=== PATIENT | female | born 1965 | race African-American/Black ===

== ENCOUNTER → 2019-03-11 | Day surgery (SDC) | payer OTHER | LOC: JRADIR 09:01 ==

== ENCOUNTER → 2019-07-03 | Day surgery (SDC) | payer OTHER ==
--- NOTE | 2019-07-07 09:48 | PATH ---
Cytology Non-Gynecological Report Patient Name: DOUGLAS CORLEY Med. Rec. #: [id number] /Age/Gender: 1965 (Age: 54) / F Account: [id number] Location: RADIOLOGY INTER Taken: 07/03/2019 Received: 07/03/2019 Reported: 07/07/2019 Physicians: Junior Ramos M.D. Specimen(s) Received THYROID LEFT LOBE Clinical History Left lobe 3.42 x 2.36 x 2.92 cm Final Diagnosis THYROID, LEFT, FINE NEEDLE ASPIRATION: SATISFACTORY FOR EVALUATION. BETHESDA IV: SUSPICIOUS FOR FOLLICULAR NEOPLASM. FOLLICULAR CELLS WITH MILD NUCLEAR ENLARGEMENT, OCASSIONAL NUCLEOLI, SUBTLE GROOVES, AND NUCLEAR CROWDING DISPERSED CELLULAR FRAGMENTS, TRABECULAR AGGREGATES AND MICROFOLLICLES. RARE LYMPHOCYTES AND RARE MACROPHAGES NOTED. SEE COMMENT. Comment: Prior material is noted. Molecular studies pending (Thyroseq). Findings will be reported separately. Case discussed with Dr. Miller. Electronically Signed Constance Mckeon M.D. Addendum Reported: 07/23/2019 Addendum Diagnosis NEXT-GENERATION SEQUENCING (THYROSEQ V3) performed and interpreted at [place], [place] ([id number]) shows the following: SITE: LEFT THYROID TEST RESULT: POSITIVE RISK OF CANCER RECURRENCE: HIGH (>95%). POTENTIAL MANAGEMENT: Surgical excision. See interpretation below for details. INTERPRETATION: Multiple mutations, including those of the SERA, EIF1AX, TP53, and TERT genes, were identified in this sample. This molecular profile is associated with a high (>95%) probability of cancer, typically high-risk follicular variant papillary carcinoma or follicular carcinoma. Tumors with multiple mutations including TP53 and TERT are of a high risk for recurrence and distant spread. These tumors may be prone to dedifferentiation. Because of the molecular signature of high-risk cancer, total thyroidectomy may be considered in appropriately selected patients. Patient management decisions must be based on the independent medical judgment of the treating physician. Molecular test results should be taken into consideration in conjunction with all relevant imaging and clinical findings, patient and family history, as well as patient preference. DETAILED RESULTS Specimen cellularity/adequacy for interpretation: ADEQUATE. Marker Type Marker Result AF Variant Allele Frequency Gene mutations TP53 p.K943_sqxiey c.375+1del 60% NRAS p.Q61K c.181C>A 39% PIK3CA p.S7031P c.3140A>G 10% EIF1AX p.A774_sukcnx c.338-4_354del 53% TERT p.C228T c.1-124C>T 4% Gene fusions Negative Copy number alterations Negative Gene expression profile Negative Parathyroid Negative Medullary/C-cells Negative See Thyroseq report for details ([id number]). Constance Mckeon M.D. Gross Description Received are eight direct smears, four of which are air-dried and Diff-Quik stained, and four of which are alcohol fixed and Pap stained. Also received is 20 ml of bloody formalin from which one cellblock is prepared. Received is a 1.5 ml molecular ThyroSeq tube.
== END | disposition home or self-care (01) ==
LOC: JRADIR 09:13
PROVIDERS: ATTEND Internal Medicine Endocrinology, Diabetes & Metabolism
PROC: 0G9G3ZX Drainage of Left Thyroid Gland Lobe, Percutaneous Approach, Diagnostic (ICD-10-PCS; principal; 2019-07-03)
DX: D44.0 Neoplasm of uncertain behavior of thyroid gland (principal)
CPT/HCPCS: 76942; 88173; 88305-TC

== ENCOUNTER 2019-08-22 08:21 | Day surgery (SDC) | payer OTHER ==
[2019-08-21 18:54] VITALS: BMI 29.2
--- NOTE | 2019-08-22 08:13 | HP ---
[facility] - Chief Complaint History of Present Illness: Patient with thyroid nodule, suspicious for malignancy. Plan : total thyroidectomy, possible neck dissection. Procedure : Explained , with risks , benefits and complications explained. - Past Medical History Allergies/Adverse Reactions: Allergies Allergy/AdvReac Type Severity Reaction Status Date / Time No Known Drug Allergies Allergy Verified 08/21/19 19:01 - Current Medications Current Medications: Home Medications Medication Instructions Recorded Aspirin Coated [Ecotrin -] 81 mg PO DAILY 08/21/19 Hydrochlorothiazide [Hctz -] 25 mg PO DAILY 08/21/19 Levothyroxine [Synthroid -] 25 mcg PO DAILY 08/21/19 Losartan Potassium 25 mg PO DAILY 08/21/19
[2019-08-22] MEDS ORDERED: LIDOCAINE HCL/PF 2% SDV 5ML VIAL ONE (09:31)
[2019-08-22] MEDS ORDERED: fentaNYL CITRATE 250 MCG/5 ML VIAL ONE (09:31)
[2019-08-22] MEDS ORDERED: PROPOFOL 20 ML ONE ×8 (09:32→13:02)
[2019-08-22] MEDS ORDERED: ROCURONIUM BROMIDE 50 MG/5 ML SYRINGE ONE (09:32)
[2019-08-22] MEDS ORDERED: MIDAZOLAM HCL 2 MG/2 ML SINGLE DOSE VIAL ONE (09:32)
[2019-08-22] MEDS ORDERED: DESFLURANE GAS 240 ML BOTTLE IH ONE (09:35)
[2019-08-22] MEDS ORDERED: HYDROmorphone HCl 2 MG/ML VIAL ONE (11:40)
[2019-08-22] MEDS ORDERED: LABETALOL HCL 5 MG/1 ML (100MG/20 ML VIAL) ONE (11:49)
[2019-08-22] MEDS ORDERED: ONDANSETRON 4 MG/2 ML VIAL IVPUSH PRN (12:08)
[2019-08-22] MEDS ORDERED: oxyCODONE HCL 5 MG TABLET PO PRN ×2 (12:08→12:09)
[2019-08-22] MEDS ORDERED: LACTATED RINGERS SOLUTION 1,000 ML IV SCH (12:15)
--- NOTE | 2019-08-22 13:47 | OP ---
Operative Note - Note: Operative Date: 08/22/19 Pre-Operative Diagnosis: Neoplasm of thyroid,. Thyroid nodule suspicious for carcinoma. Operation: Total thyroidectomy , use of Nervana nerve monitor. Findings: Large nodule in lower pole of left lobe of thyroid gland, multiple small firm nodules around the upper pole of the left lobe of thyroid and inferior pole of the right lobe of thyroid gland. Post-Operative Diagnosis: Same as Pre-op Surgeon: Christiano Mayers Clinical Data Manager: Van Navarro Anesthesia: General Specimens Removed: 1)Total thyroidectomy,. 2) Nodule at the inferior pole of the right lobe of thyroid gland. Estimated Blood Loss (mls): 15 Instrument used (Debridements only): Nervana nerve monitor. Drains & Tubes with Location: HARMAN drain placed in the thyroid bed. Operative Report Dictated: Yes
[2019-08-22] MEDS ORDERED: LOSARTAN 50MG/HCTZ 12.5MG 1 TAB (FP) PO ONE (13:52)
[2019-08-22] MEDS ORDERED: ACETAMINOPHEN 325 MG TABLET (FP) PO PRN (14:24)
--- NOTE | 2019-08-22 14:32 | SURG ---
Surgery Account General Manager Note Account General Manager: Van Navarro PA-C (Suzy) Date of Service: 08/22/19 Diagnosis: Neoplasm of thyroid,. Thyroid nodule suspicious for carcinoma. Procedure: Operation: Total thyroidectomy , use of Nervana nerve monitor. I was present for the entirety of the operative procedure. For further detail, please refer to operative report. Visit type - Case Type Case Type: Scheduled - Emergency Emergency Visit: No - New patient This patient is new to me today: Yes Date on this admission: 08/22/19 - Critical Care Critical Care patient: No
--- NOTE | 2019-08-22 15:08 | OP ---
DATE OF OPERATION: 08/22/2019 PREOPERATIVE DIAGNOSES: 1. Nodule in the left lobe of the thyroid, suspicious for carcinoma. 2. Neoplasm of the thyroid gland. 3. Abnormal cytogenetics of the thyroid and pathology. POSTOPERATIVE DIAGNOSIS: 1. Nodule in the left lobe of the thyroid, suspicious for carcinoma. 2. Neoplasm of the thyroid gland. 3. Abnormal cytogenetics of the thyroid and pathology. OPERATIVE PROCEDURE: Total thyroidectomy with frozen section, use of Nervana nerve monitor. SURGEON: Christiano Mayers MD FILM INSPECTOR: INGA Torres ANESTHESIA: General anesthesia with a Nervana endotracheal tube. OPERATIVE DESCRIPTION: This 54-year-old woman had a large nodule in the left lobe of the thyroid gland. An FNA suggested to have suspicious nuclear and cytogenetics suggesting 96% probability of a neoplasm. Patient is brought in for total thyroidectomy, possible node dissection, and use of the Nervana nerve monitoring device. Consent was obtained. Risks, benefits, and complications were extensively discussed with the patient. Patient was administered anesthesia using the Nervana nerve monitor endotracheal tube. The neck was painted and draped. Time-out was called. Horizontal skin incision was made 1 fingerbreadth over the clavicle from 1 sternocleidomastoid muscle to another. The incision was deepened inside the skin, subcutaneous tissue, and the platysma muscle. Once this was done, the superior, inferior skin flaps were then raised between the platysma and the deep cervical fascia, superior lip of the hyoid bone, inferior . The sternocleidomastoid muscle was freed from the flap on either side. Once this was done, the strap muscles were divided in the midline from the hyoid bone down to the suprasternal notch. Hemostasis was achieved using hemoclips, electrocautery, or the LigaSure and sometimes with the 3-0 silk suture ligatures. Once the strap muscles were divided, the left lobe of the thyroid gland was then exposed by retracting the strap muscles, and this was delivered into the wound by mobilizing it circumferentially all around. There was a large 2-cm diameter nodule on the left lobe of the thyroid gland. The superior lobe of the thyroid gland was then mobilized dividing the superior thyroid vessels as close to the gland as possible. There were multiple, small, firm nodules along the lateral edge of the upper pole of the left lobe of the thyroid gland. These were included in the dissection and sent along with the specimen. The middle thyroid vein was also divided between clips, and the inferior thyroid muscles were also divided as close to the gland as possible. The gland was then mobilized medially. The left recurrent laryngeal nerve was identified and preserved throughout the course and so were the parathyroid glands. The gland was then mobilized across the pretracheal fascial plane. There was a pyramidal lobe, which was also removed intact along with the specimen, and the whole left lobe of the thyroid gland, which included the large nodule as well as multiple small nodules were mobilized toward the right lobe of the thyroid gland. Hemostasis was satisfactory during the procedure. The right lobe of the thyroid gland was then mobilized dividing the superior thyroid vessels as close to the gland as possible between clips as well as the LigaSure. The middle thyroid vein on the right was also divided between clips. The gland was then mobilized medially. The inferior thyroid vessels were also divided as close to the gland as possible. The right recurrent laryngeal nerve as well as the parathyroid glands were identified and preserved throughout the procedure. There was a large, firm nodule measuring a centimeter at the inferior pole of the right lobe of the thyroid gland, which was grossly excised separately and sent to Pathology separately. A total thyroidectomy was then performed. The specimen was sent to Pathology. The frozen section suggested this to be a follicular neoplasm, which included the large nodule as well as the smaller nodules in the upper pole of the left lobe of the thyroid gland as well as in the inferior pole of the right lobe of the thyroid gland. The final diagnosis was deferred. Hemostasis was satisfactory at the completion of the procedure. Both recurrent laryngeal nerves were intact and so were the parathyroid glands. The wound was irrigated. The No. 8 J-P drain was left into the wound and brought out through a stab wound on the right side of the neck. This was anchored to the skin with 3-0 Prolene sutures. The strap muscles were approximated with interrupted 3-0 Vicryl sutures, the platysma with buried interrupted 3-0 Vicryl sutures. Subcutaneous tissues were approximated with buried, interrupted 3-0 Vicryl sutures and count approximated with continuous 4-0 Monocryl sutures in a running subcuticular fashion. Estimated blood loss was less than 30 mL. Sponge count and instrument count were correct. The Nervana was applied across the skin edges. Both vocal cords were mobile at the completion of the procedure. Patient was talking normally and was extubated. Patient was transferred to the recovery room in satisfactory and stable condition. Junior [id number]
[2019-08-23 06:25] VITALS: BP 132/64; PULSE 81; TEMP 98.1
[2019-08-23] MEDS ORDERED: LEVOTHYROXINE NA 50 MCG TABLET (FP) PO SCH (07:00)
--- NOTE | 2019-08-23 09:55 | PN ---
Progress Note (short form) - Note Progress Note: 54 yo F s/p GA for thyroidectomy. pain controlled. no comps. good result of anesthetic care
--- NOTE | 2019-08-23 13:33 | PROC ---
Procedure Note Procedure: Draiin in place. Drainage 70 ml. Will discharge home. Follow up in my office on Sunday.
--- NOTE | 2019-08-29 16:49 | PATH ---
Surgical Pathology Report Patient Name: DOUGLAS CORLEY [facility]. Rec. #: [id number] /Age/Gender: 1965 (Age: 54) / F Account: [id number] Location: AMBULATORY SURG Taken: 08/22/2019 Received: 08/22/2019 Reported: 08/29/2019 Physicians: Umm Mayers M.D. Specimen(s) Received A: THYROID B: RIGHT LOWER THYROID NODULE Clinical History Malignant neoplasm of thyroid gland Intraoperative Consult Diagnosis A. Thyroid, frozen section: Follicular lesion, defer to permanents for definitive classification. B. Right lower thyroid nodule, frozen section: Follicular lesion, defer to permanents for definitive classification. Dionisio Da Silva M.D., 08/22/2019 Final Diagnosis A. THYROID, TOTAL THYROIDECTOMY (FS): POORLY DIFFERENTIATED THYROID CARCINOMA. CARCINOMA MEASURES 3 CM IN GREATEST DIMENSION (GROSS MEASUREMENT), PRESENT AT LEFT LOBE. CAPSULAR INVASION IDENTIFIED. LYMPHOVASCULAR IDENTIFIED. NO EXTRA-THYROIDAL EXTENSION IDENTIFIED. SURGICAL MARGINS ARE NEGATIVE. REMAINDER OF THYROID PARENCHYMA SHOWS MULTINODULAR HYPERPLASIA. TWO PERITHYROIDAL LYMPH NODES NEGATIVE FOR CARCINOMA (0/2). SEE INVASIVE SUMMARY BELOW. PATHOLOGIC STAGE (pTNM): pT2 pN0. SEE COMMENT. B. THYROID NODULE, LOWER, RIGHT, EXCISION (FS): BENIGN THYROID PARENCHYMA WITH NODULAR HYPERPLASIA. Comment: Part A, the tumor is encapsulated and show microfollicular, solid, and insular growth pattern. Patchy areas of convoluted nuclei and readily identifiable mitosis (mitosis: 7-9/10HPF) present. No necrosis identified. Capsular and lymphovascular invasion present. Immunohistochemical stains performed and interpreted at [facility] show the tumor is positive for TTF-1; while negative for synaptophysin and chromogranin. Additional immunohistochemical stains performed at [place], [place] ([id number]) and interpreted at [facility] show the tumor is positive for thyroglobulin; while negative for PTH and calcitonin. Overall, findings support a poorly differentiated thyroid carcinoma. Case seen in intradepartmental review with consensus on diagnosis. Positive and negative controls (internal if applicable) show appropriate results. Comments Thyroid: Surgical Pathology Cancer Case Summary (Based on AJCC 8 th edition) Procedure _X_ Total thyroidectomy Tumor Focality _X_ Unifocal Tumor Site _X_ Left lobe Tumor Size Greatest dimension (centimeters): 3 cm (gross measurement) Histologic Type _X_ Poorly differentiated thyroid carcinoma Margins _X_ Uninvolved by carcinoma Angioinvasion (Vascular Invasion) _X_ Present Lymphatic Invasion _X__ Not identified Extrathyroidal Extension _X_ Not identified Regional Lymph Nodes Number of Lymph Nodes Involved: 0 Number of Lymph Nodes Examined: 2 Specify Alessia Levels _X__ Level - pretracheal, paratracheal and prelaryngeal/Delphian, perithyroidal (central compartment Pathologic Stage Classification (pTNM, AJCC 8th Edition) Primary Tumor (pT) _X__ pT2: Tumor >2 cm, but =4 cm in greatest dimension, limited to thyroid Regional Lymph Nodes (pN) _X__ pN0: No evidence of locoregional lymph node metastasis Additional Pathologic Findings _X__ Adenomatoid nodule(s) or nodular follicular disease (nodular hyperplasia) Electronically Signed Constance Mckeon M.D. Gross Description A. Received fresh for immediate intraoperative consultation labeled "thyroid," is a 32 g total thyroidectomy. The left lobe measures 5.0 x 3.0 x 2.4 cm, the pyramidal lobe and isthmus measure 3.3 x 1.5 x 1.2 cm and the right lobe measures 4.5 x 2.2 x 0.7 cm. The outer surface is red and intact with a nodular, lobulated appearance at the left upper lobe. Sectioning reveals heterogeneous, multinodular parenchyma. The largest nodule measures 3.0 cm in greatest dimension. The nodules abut the outer capsule but do not appear to invade through it. The remaining thyroid parenchyma is red-brown and beefy. The left lobe is inked black, the isthmus and pyramidal lobe are inked green and the right lobe is inked red. Skin Piler sections of the left upper lobe (lobulated area) are submitted for frozen section. Skin Piler sections are submitted in 19 cassettes as follows: 1-frozen section residue; 2-12-left lobe sequentially submitted from superior to inferior (one bisected sectioning each in cassettes 5/6, 7/8, 9/10); 16-18-qwvtmsehg lobe and isthmus sequentially submitted from superior to inferior; 16-19-right lobe sequentially submitted from superior to inferior. B. Received fresh for immediate intraoperative consultation labeled "right lower thyroid nodule," is a 0.8 x 0.7 x 0.6 cm red-brown, intact nodule. The outer surface is inked black and the specimen is bisected. The specimen is entirely submitted for frozen section. The frozen section residue is entirely submitted in one cassette. 08/22/201908/22/2019
== END 2019-08-23 16:53 | disposition home or self-care (01) ==
LOC: JASU-SURG 08:21 → JASUSAT 08:21 → J6S 17:24 → JASUSAT 08-23 16:53
PROVIDERS: ATTEND Specialist
PROC: 0GBJ0ZZ Excision of Thyroid Gland Isthmus, Open Approach (ICD-10-PCS; 2019-08-22)
PROC: 0GTK0ZZ Resection of Thyroid Gland, Open Approach (ICD-10-PCS; principal; 2019-08-22 10:45)
DX: C73 Malignant neoplasm of thyroid gland (principal)
CPT/HCPCS: 86850; 86900; 86901; 88305-TC; 88307-TC; 88331-TC; 88341-TC; 88342-TC; 94760

== ENCOUNTER → 2025-03-09 | Day surgery (SDC) | payer OTHER | END | disposition home or self-care (01) | LOC: JRADIR 08:41 | PROVIDERS: ATTEND Internal Medicine Endocrinology, Diabetes & Metabolism | PROC: 0GBH3ZX Excision of Right Thyroid Gland Lobe, Percutaneous Approach, Diagnostic (ICD-10-PCS; principal; 2025-03-09) | DX: E04.1 Nontoxic single thyroid nodule (principal); E89.0 Postprocedural hypothyroidism; R22.1 Localized swelling, mass and lump, neck | CPT/HCPCS: 10005; 76942; 88173; 88305-TC; 88341-TC; 88342-TC ==